=== PATIENT | male | born 1995 | race Two or more races ===

== ENCOUNTER 2023-10-31 14:53 | Emergency (ER) | payer MEDICAID ==
[~2023-10-31] VITALS: Ht 172.7 cm; Wt 75.0 kg
[2023-10-31 15:04] VITALS: BP 144/80; PULSE 148; RESP 18; TEMP 98.2; O2SAT 99
== END 2023-10-31 15:39 | disposition left against medical advice (07) ==
LOC: ER 14:53
DX: T43.651A Poisoning by methamphetamines accidental (unintentional), initial encounter (principal); Z53.21 Procedure and treatment not carried out due to patient leaving prior to being seen by health care provider; Z86.59 Personal history of other mental and behavioral disorders; Y92.9 Unspecified place or not applicable
CPT/HCPCS: 99283